=== PATIENT | female | born 1950 | race Caucasian/White ===

== ENCOUNTER → 2018-05-18 | Outpatient (CLI) | payer OTHER ==
[~2018-05-18] MED LIST: ASPIR 8181 MG PO; ASPIRIN325 PO; CALCIUM 600 +1 EAC1 PO; COLACE100 MG PO; ELIQUIS2.5 MG PO; FISH OIL 1,001000 M2 PO; LOSARTAN-HCTZ1 EAC1 PO; NORVASC10 MG PO; OXYCODONE HCL 55 MG PO; PRAVACHOL40 MG PO; PROZAC20 MG PO
== END ==
LOC: M.MRI 17:15
DX: M75.101 Unspecified rotator cuff tear or rupture of right shoulder, not specified as traumatic (principal); S43.401A Unspecified sprain of right shoulder joint, initial encounter; M19.011 Primary osteoarthritis, right shoulder; X58.XXXA Exposure to other specified factors, initial encounter; Y93.89 Activity, other specified; Y92.89 Other specified places as the place of occurrence of the external cause; Y99.8 Other external cause status

== ENCOUNTER 2018-07-27 06:10 | Inpatient (IN) | payer OTHER ==
[2018-07-16 08:15] LABS: ABSOLUTE EOSINOPHILS 0.1 thou/uL (0.0-0.7); ABSOLUTE LYMPHOCYTES 1.5 thou/uL (0.8-5.3); ABSOLUTE MONOCYTES 0.5 thou/uL (0.0-1.2); ABSOLUTE NEUTROPHILS 3.4 thou/uL (1.6-8.1); BASOPHILS 0.8 %; EOSINOPHILS 2.3 %; HEMATOCRIT 40.9 % (37.0-47.0); HEMOGLOBIN 13.5 gm/dL (12.0-15.0); LYMPHOCYTES 26.7 %; MCH 30.1 pg (26.0-34.0); MCHC 33.1 g/dL (28.0-37.0); MCV 90.8 fL (80.0-100.0); MONOCYTES 8.6 %; MPV 7.8 fl. (7.2-11.1); NUCLEATED RBCS 0 /100WBC; PLATELET COUNT* 276 thou/uL (150-400); POLYS 61.6 %; RDW-CV 13.5 % (10.5-14.5); WBC 5.5 thou/uL (4.0-11.0)
[2018-07-16 08:20] LABS: APTT 24.3 Seconds (25.0-31.3); INR 0.9; PROTIME 9.7 Seconds (9.20-11.50)
[2018-07-16 08:24] LABS: ALBUMIN 3.5 g/dL (3.4-5.0); CALCIUM 8.6 mg/dL (8.5-10.1); CREATININE 0.7 mg/dL (0.6-1.3); POTASSIUM 3.6 mmol/L (3.5-5.1); TOTAL BILIRUBIN 0.7 mg/dL (<0.1-1.0); TOTAL PROTEIN 7.3 g/dL (6.4-8.2)
[2018-07-16 09:31] LABS: ESR (SEDRATE) 8 mm/hr (0-30)
--- NOTE | 2018-07-16 16:28 | EKG ---
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1950 Requested By: Todd Chau Order Number: [id number] Reading MD: David Hamlin Measurements Intervals [place] Rate: 69 P: -9 ID: 158 QRS: -27 QRSD: 105 T: -1 QT: 434 QTc: 465 Interpretive Statements Sinus rhythm Left ventricular hypertrophy Inferior infarct, old Compared to ECG 02/12/2008 11:05:21 Left ventricular hypertrophy now present Myocardial infarct finding still present Electronically Signed On 07-16-2018 16:28:35 CDT by David Hamlin [email or web address] <ELECTRONICALLY SIGNED> By: David Hamlin MD, [facility] 07/16/18 1628 D: [id number] 6 David Hamlin MD, FACC /EPI
[2018-07-17 02:11] LABS: GLYCOHEMOGLOBIN (HGB A1C) 5.6 % (4.8-5.6)
[~2018-07-27] VITALS: Ht 170.2 cm; Wt 104.8 kg
[~2018-07-27 06:10] MED LIST changes: -ASPIRIN325 PO; -COLACE100 MG PO; -ELIQUIS2.5 MG PO; -OXYCODONE HCL 55 MG PO
[2018-07-27 10:40] VITALS: BP 140/76
[2018-07-27 15:26] VITALS: BP 133/62
[2018-07-27 16:00] VITALS: BP 116/48
[2018-07-27 20:00] VITALS: BP 106/58
[2018-07-28] VITALS (7 sets, daily range): BP systolic 121–129; BP diastolic 61–81
[2018-07-28] MEDS ORDERED: OXYCODONE HCL 55 MG PO (11:45)
[2018-07-28] MEDS ORDERED: ELIQUIS2.5 MG PO (11:47)
[2018-07-28] MEDS ORDERED: COLACE100 MG PO (12:04)
[2018-07-28] MEDS ORDERED: ASPIRIN325 PO (12:15)
--- NOTE | 2018-08-03 09:15 | OP ---
[address] [address] OPERATIVE REPORT Name: LINDSEY JAMES Room: [address] IN .R.#: [id number] Admission: 07/27/18 Attend Phys: James Curran Discharge: 07/28/18 Date of : 46 Report #: [id number] THIS REPORT FOR: //name// CC: Bella Smith DICTATED BY: Mikael Valdivia DO DATE OF SERVICE: 07/27/2018 Operative report dictated on behalf of Dr. Todd Chau. PREOPERATIVE DIAGNOSIS: Right shoulder degenerative joint disease with massive irreparable rotator cuff tear with significant atrophy. POSTOPERATIVE DIAGNOSIS: Right shoulder degenerative joint disease with massive irreparable rotator cuff tear with significant atrophy. PROCEDURE: Right reverse total shoulder arthroplasty utilizing Biomet comprehensive reverse shoulder system with the following components. 1. A 12 mm mini humeral stem. 2. A 25 mm diameter glenosphere mini baseplate. 3. A 6.5 mm x 40 mm central glenoid baseplate screw. 4. A 25 mm, 15 mm, 25 mm nonlocking 4.75 mm diameter baseplate screws. 5. A 30 mm x 4.75 mm diameter locking superior glenoid baseplate screw. 6. A 36 mm diameter standard glenosphere. 7. A 44 mm diameter standard ArCom humeral bearing. SURGEON: Todd Chau DO. LAYOUT MECHANIC: Mikael Valdivia DO. ANESTHESIA: General. ESTIMATED BLOOD LOSS: 100 mL. ANTIBIOTICS: 2 grams Ancef IV preoperatively. DRAINS: None. SPECIMENS: None. COMPLICATIONS: [place] [address] OPERATIVE REPORT Name: JACOBAILYNLINDSEYFRANCISCO BARKSDALE Room: [address] IN ..#: [id number] Admission: 07/27/18 Attend Phys: James Curran Discharge: 07/28/18 Date of : 46 Report #: [id number] DISPOSITION: Stable to PACU and will be admitted to the hospital for standard postoperative care. INDICATION FOR PROCEDURE: The patient is a pleasant 67-year-old female with complaints of chronic right shoulder pain. On exam, she had significantly decreased range of motion and strength with significant amount of pain. Radiographs displayed moderate degenerative changes of her right shoulder. MRI was obtained of her right shoulder that displayed massive rotator cuff tear with significant retraction and fatty atrophy. I had a lengthy discussion with the patient in Orthopedic Clinic discussing options and feel that her best option at this point would be a right reverse total shoulder arthroplasty. Risks, benefits, complications, indications and alternative treatments were discussed and the patient wished to proceed with surgery today. DESCRIPTION OF PROCEDURE: The patient was seen in preoperative holding area. Correct operative site, right shoulder was initialed. The patient was taken back to the operating suite, placed in supine position on standard operating room table, given benefit of general anesthetic. The head of the bed was elevated to roughly 30 degrees and the legs were placed on the standard elevated pad. All bony prominences were well padded. The right shoulder was slid over to the side of the table, therefore, to allow appropriate access throughout the surgery. Head was secured and monitored throughout the surgery and right shoulder was then prepped and draped in typical fashion. Surgery began at the time identifying correct patient, correct procedure, correct operative site, preoperative antibiotics and correct performing surgeon. Next, a standard deltopectoral approach to the right shoulder was performed. Skin was incised with #10 blade scalpel just lateral to the coracoid process extending distally along the deltopectoral interval for roughly 10-12 cm. Subcutaneous tissues were sharply incised utilizing a 10 blade scalpel also down to the level of the deltopectoral fascia. Cephalic vein was identified, was taken laterally throughout the procedure. A deltopectoral interval was bluntly dissected. Adhesions were released from the deep surface of the deltoid bluntly. A Babin-Deltoid retractor was placed deep to the deltoid. Clavipectoral fascia was incised just lateral to the conjoined tendon. Conjoined tendon was gently retracted medially throughout the case. The upper border of the pectoralis major tendon was released for roughly 1 to 1.5 cm utilizing electrocautery. There was significant evidence of a massive supraspinatus rotator cuff tear that was retracted. Biceps tendon was found within the bicipital groove and followed proximally as a capsule and subscapularis that were taken off in the PO type technique off the lesser tuberosity after releasing the biceps tendon. Capsule and subscapularis tendon again were peeled off while externally rotating the arm roughly to 1 cm distal to the anatomic neck medially along the proximal humeral shaft. A proximal humerus was able to be dislocated at this point. A canal finder was inserted in the normal fashion roughly centrally in A-P direction [place] [address] OPERATIVE REPORT Name: LINDSEY JAMES Room: [address] IN .R.#: [id number] Admission: 07/27/18 Attend Phys: James Curran Discharge: 07/28/18 Date of : 46 Report #: [id number] articular margin down the humeral canal. Sequential reamers were passed up to the appropriate size. A cutting jig was then inserted to take roughly 2-3 mm extra past the articular margin and the previous cuff insertion line for roughly 20 degrees of retroversion. Oscillating saw was utilized to perform proximal humerus cut in the normal fashion. We commenced with broaching of our humeral stem in the normal fashion up to the appropriate size, which felt to have a great fixation. Final humeral stem was then impacted in the normal fashion at this time. Then, attention was turned to her glenoid. The appropriate trackers were positioned, one posteriorly, one anteriorly and one superiorly to the glenoid. Remaining glenoid labrum and biceps tendon were debrided at this time. Capsule was released off the inferior glenoid on to the lateral scapular pillar avoiding the axillary nerve as we stayed on bone. A targeting device was then utilized to place our central guide pin with roughly 10 degrees inferior tilt and just inferior to the center point of the glenoid. One-step reamer was performed in the normal fashion also drilling for our central peg. A baseplate was then impacted into place, lining up our holes in the normal fashion. A central screw was drilled and inserted in the normal fashion and had great bite. Superior and inferior screws were drilled with superior screw being angled towards the base of the coracoid and inferior screw being angled down the lateral scapular pillar in the normal fashion. Superior screw was locking. Remainder of baseplate screws were nonlocking. The anterior and posterior screws were placed in normal fashion. A trial glenosphere with a standard offset was then placed followed by a trial of humeral tray. Once reducing this, we had a great range of motion and great stability of her shoulder in all planes. We removed the trial humeral tray and glenosphere at this point. A thorough irrigation was performed. Final glenosphere was impacted into place in the normal fashion and a final humeral tray and humeral polyethylene liner were impacted into the humeral stem in the normal fashion. Final reduction of reverse total shoulder was performed. Again, it was taken through range of motion and felt to have excellent stability and excellent range of motion, great stability with all planes of motion. Shoulder was then again thoroughly irrigated. Standard cocktail was injected. Subscapularis tendon was repaired back to the lesser tuberosity utilizing a #1 Vicryl suture being pierced through the lesser tuberosity with the cutting needle in a hahlax-mz-xgtfr fashion. The deltopectoral interval and fascia was reapproximated loosely utilizing a #1 Vicryl suture in a aowvjt-bb-kpxxk fashion. Subcutaneous tissues were closed in a simple inverted fashion with 2-0 Monocryl sutures. A running 3-0 subcuticular Stratafix was performed. Dermabond was applied to the skin. Standard dressings were applied consisting of Mepilex. The patient was placed in a slingshot shoulder immobilizer, weaned from general anesthetic, transferred in stable condition to the PACU. All sponge and needle counts were correct x 2. <ELECTRONICALLY SIGNED> By: Todd Chua DO 08/03/18 0915 1621 [id number] Chau DO /nt
== END 2018-07-28 15:02 | disposition home or self-care (01) | DRG 483 ==
LOC: M.PRE 06:10 → M.ORTHSURG 09:06 → M.TBA 09:06 → M.PRE 10:19 → M.ORTHSURG 14:48 → M.PRE 15:11 → M.ORTHSURG 07-28 15:02
PROVIDERS: Orthopaedic Surgery; ADMIT Internal Medicine
PROC: 0RRJ00Z Replacement of Right Shoulder Joint with Reverse Ball and Socket Synthetic Substitute, Open Approach (ICD-10-PCS; principal; 2018-07-27)
DX: M19.011 Primary osteoarthritis, right shoulder (principal); M75.101 Unspecified rotator cuff tear or rupture of right shoulder, not specified as traumatic; I10 Essential (primary) hypertension; E78.00 Pure hypercholesterolemia, unspecified; E78.5 Hyperlipidemia, unspecified; G89.18 Other acute postprocedural pain; R09.02 Hypoxemia; Z60.2 Problems related to living alone; Z88.8 Allergy status to other drugs, medicaments and biological substances; I25.2 Old myocardial infarction; Z95.5 Presence of coronary angioplasty implant and graft; Z90.710 Acquired absence of both cervix and uterus; Z90.49 Acquired absence of other specified parts of digestive tract; Z79.899 Other long term (current) drug therapy

== ENCOUNTER → 2020-01-27 | Outpatient (CLI) | payer MEDICARE ==
[~2020-01-27] VITALS: Ht 170.2 cm; Wt 104.3 kg
[~2020-01-27] MED LIST changes: +ASPIRIN325 PO; +COLACE100 MG PO; +ELIQUIS2.5 MG PO; +EVISTA PO; +OLMESARTAN-HCT1 EAC2 PO; +OXYCODONE HCL 55 MG PO; +VITAMIN B12 PO; +VITAMIN D3125 MC1 PO; +ZETIA10 MG PO
[2020-01-27 09:08] LABS: ABSOLUTE BASOPHILS 0.1 thou/uL (0.0-0.2); ABSOLUTE EOSINOPHILS 0.1 thou/uL (0.0-0.7); ABSOLUTE LYMPHOCYTES 1.8 thou/uL (0.8-5.3); ABSOLUTE MONOCYTES 0.5 thou/uL (0.0-1.2); ABSOLUTE NEUTROPHILS 3.4 thou/uL (1.6-8.1); BASOPHILS 1.1 %; EOSINOPHILS 1.8 %; HEMOGLOBIN 14.1 gm/dL (12.0-15.0); LYMPHOCYTES 30.5 %; MCH 30.5 pg (26.0-34.0); MCHC 33.6 g/dL (28.0-37.0); MCV 90.7 fL (80.0-100.0); MONOCYTES 8.3 %; MPV 7.7 fl. (7.2-11.1); NUCLEATED RBCS 0 /100WBC; PLATELET COUNT* 274 thou/uL (150-400); POLYS 58.3 %; RBC 4.63 mil/uL (4.20-5.00); RDW-CV 13.3 % (10.5-14.5); WBC 5.9 thou/uL (4.0-11.0)
[2020-01-27 09:15] LABS: PROTIME 10.1 Seconds (9.20-11.50)
[2020-01-27 09:19] LABS: ALBUMIN 3.8 g/dL (3.4-5.0); CALCIUM 9.2 mg/dL (8.5-10.1); CREATININE 0.8 mg/dL (0.6-1.3); POTASSIUM 3.8 mmol/L (3.5-5.1); TOTAL BILIRUBIN 0.6 mg/dL (<0.1-1.0); TOTAL PROTEIN 7.7 g/dL (6.4-8.2)
[2020-01-27 10:21] LABS: ESR (SEDRATE) 3 mm/hr (0-30)
--- NOTE | 2020-01-27 14:14 | EKG ---
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1950 Requested By: Todd Chau Order Number: [id number] Ana Cristina MD: Jose Gatica Measurements Intervals [place] Rate: 70 P: 9 VT: 161 QRS: -19 QRSD: 95 T: 4 QT: 413 QTc: 446 Interpretive Statements Sinus rhythm Inferior infarct, old Compared to ECG 07/16/2018 08:27:47 Left ventricular hypertrophy no longer present Myocardial infarct finding still present Electronically Signed On 01-27-2020 14:13:37 CDT by Jose Gatica [email or web address] <ELECTRONICALLY SIGNED> By: Jose Gatica MD, [facility] 01/27/20 1413 6 Jose Gatica MD, FAC /EPI
[2020-01-27 21:06] LABS: GLYCOHEMOGLOBIN (HGB A1C) 5.8 % (4.8-5.6)
== END ==
LOC: M.CRD 08:00 → M.LAB 08:00 → M.PRE 02-07 06:52 → EDSTATUS 02-07 15:05
PROVIDERS: Orthopaedic Surgery
DX: Z01.818 Encounter for other preprocedural examination (principal); M17.12 Unilateral primary osteoarthritis, left knee; I25.2 Old myocardial infarction; Z96.652 Presence of left artificial knee joint

== ENCOUNTER 2020-03-20 06:15 | Inpatient (IN) | payer MEDICARE ==
[2020-03-15 09:04] LABS: ABSOLUTE EOSINOPHILS 0.1 thou/uL (0.0-0.7); ABSOLUTE LYMPHOCYTES 1.9 thou/uL (0.8-5.3); ABSOLUTE MONOCYTES 0.5 thou/uL (0.0-1.2); ABSOLUTE NEUTROPHILS 3.4 thou/uL (1.6-8.1); BASOPHILS 0.7 %; EOSINOPHILS 1.3 %; HEMATOCRIT 40.8 % (37.0-47.0); HEMOGLOBIN 13.9 gm/dL (12.0-15.0); LYMPHOCYTES 32.3 %; MCH 30.5 pg (26.0-34.0); MCHC 34.1 g/dL (28.0-37.0); MCV 89.4 fL (80.0-100.0); MONOCYTES 8.3 %; MPV 7.4 fl. (7.2-11.1); NUCLEATED RBCS 0 /100WBC; PLATELET COUNT* 266 thou/uL (150-400); POLYS 57.4 %; RBC 4.57 mil/uL (4.20-5.00); RDW-CV 13.6 % (10.5-14.5); WBC 5.9 thou/uL (4.0-11.0)
[2020-03-15 09:10] LABS: APTT 23.6 Seconds (25.0-31.3)
[2020-03-15 09:29] LABS: ALBUMIN 3.6 g/dL (3.4-5.0); CALCIUM 8.9 mg/dL (8.5-10.1); CREATININE 0.9 mg/dL (0.6-1.3); TOTAL BILIRUBIN 0.6 mg/dL (<0.1-1.0); TOTAL PROTEIN 7.2 g/dL (6.4-8.2)
[2020-03-15 10:14] LABS: ESR (SEDRATE) 6 mm/hr (0-30)
[~2020-03-20] VITALS: Ht 170.2 cm; Wt 104.3 kg
--- NOTE | ~2020-03-20 | OP ---
[place] [id number] OPERATIVE REPORT Name: LINDSEY JAMES Room: [address] IN M.R.#: [id number] Admission: 03/20/20 Attend Phys: James Curran Discharge: Date of : 46 Report #: [id number] THIS REPORT FOR: //name// cc: Bella Camacho Anna S. DO ~ THIS REPORT FOR: //name// CC: Bella Smith DICTATED BY: Bandar Cantrell DO DATE OF SERVICE: 03/20/2020 PREOPERATIVE DIAGNOSIS: Left knee degenerative joint disease. POSTOPERATIVE DIAGNOSIS: Left knee degenerative joint disease. OPERATION: Left total knee arthroplasty. SURGEON: Todd Chau DO DIRECTOR HOUSEKEEPING: Bandar Cantrell DO and Jazz Waldron PA-C. ESTIMATED BLOOD LOSS: 100 mL. ANTIBIOTICS: 2 g IV Ancef given within 1 hour of skin incision. ANESTHESIA: General plus preoperative adductor canal block with indwelling OnQ catheter TXA given IV preoperatively 1 gram. DRAINS: None. SPECIMENS: None. COMPLICATIONS: None. CONDITION: Stable. DISPOSITION: To PACU to ortho floor. OPERATIVE IMPLANTS: Include the [employer] Journey II System with following size components: 1. Size 5 Oxinium femoral component. 2. Size 5 tibial baseplate 10 mm thickness polyethylene insert. [address] [place] [address] OPERATIVE REPORT Name: LINDSEY JAMES ANN Room: [address] IN [facility].#: [id number] Admission: 03/20/20 Attend Phys: James Curran Discharge: Date of : 46 Report #: [id number] 3. A 32-mm patellar components and also 2 bags of Biomet bone cement were used for implantation. OPERATIVE INDICATIONS: The patient is a pleasant 69-year-old female who has been followed in orthopedic clinic regarding her longstanding left knee pain. Radiographs are consistent with severe degenerative changes with loss of joint space, subchondral sclerosis, osteophytic changes as well as a varus abnormality. She had failed conservative treatment over the last several years, including activity modifications, anti-inflammatories and intraarticular injections. Despite trying these things, she has continued pain and decrease in her overall quality of life; therefore, we did recommend left total knee arthroplasty. Risks, indications, and treatment alternatives were discussed with the patient and informed consent was signed and attached to chart. DESCRIPTION OF PROCEDURE: The patient was taken to the operating suite and placed on operative table in supine position where general anesthesia was induced. A well-padded tourniquet was then placed on the left proximal thigh. Of note, this was inflated for a total of 60 minutes throughout the procedure at 295 mmHg. The left lower extremity was then sterilely prepped and draped free in the usual fashion. A time-out was then performed to confirm the safety checklist has been completed and all the present OR personnel were in agreement. The extremity was gravity exsanguinated. A midline incision was then marked out and utilized. Sharp dissection was carried down through skin and subcutaneous tissue down to the level of the extensor mechanism. A standard medial parapatellar arthrotomy was then made utilizing the new blade. The fat pad was debrided and the patella was everted and the knee was hyperflexed. Retractors were then placed. Osteophytes were then removed with rongeur and gained access to the intramedullary canal with the large reamer. The intramedullary femoral cutting block was then pinned into position at 5 degrees of valgus and a 10 mm resection from the distal femur. Cutting block was then pinned into position, cut was confirmed with an otis wing and then made with a reciprocating saw. Bony cut surfaces were then removed. Attention was then taken to the proximal tibia. The extramedullary tibial guide was set to resect 10 mm from the highest point. Appropriate rotation and slope were established and the cutting block was pinned into position. Retractors were placed to protect the collateral ligament as well as popliteal structure. subcutaneous saw was then used to make the bony cut. The bony cut surfaces were then removed. The extension block was checked in full extension and found to be appropriate. Therefore, the pins were removed. The knee was once again hyperflexed. Attention was taken back to the distal femur where the femur was measured from anterior to posterior, the appropriate 5-in-1 cutting block was pinned into position and 3 degrees of external rotation in reference to the posterior condylar axis. The cutting block was pinned into position and the cuts were then made through the capture block. Bony wafers were then removed. At this time, the meniscal remnants as well as the remaining posterior osteophytes were removed and the remnant cruciate ligaments. The proximal tibia [address] [address] OPERATIVE REPORT Name: LINDSEY JAMES Room: [address] IN M.R.#: [id number] Admission: 03/20/20 Attend Phys: James Curran Discharge: Date of : 46 Report #: [id number] was then measured appropriately and the trial baseplate was pinned into position using a drop leyla to confirm the appropriate rotation. The trial femoral component was then impacted on to the distal femur. Multiple sized tibial bearings were then trialled. A 10 mm spacer gave excellent range of motion and stability throughout. Attention was then taken to patella where there were significant degenerative changes. Therefore, we did proceed with resurfacing this with the Biomet reamers to a 14 mm thickness, which did leave us with a nice flush cut surface. The patella was then measured and the peg holes were drilled and the patellar button was placed and taken through full range of motion and found to be tracking appropriately. The trial patella and femoral components were then removed. The tibia was prepared for final implantation with the drill and punch. Small drill holes were made on the medial surface of the tibial plateau where there was sclerotic bone to improve cement interdigitation. The knee was then copiously irrigated. The anesthetic cocktail was injected into the posterior capsule as well as the surrounding soft tissue. The bone cement was mixed on the back table and applied to the undersurface of the final components. The bony surfaces were dried and then the cement was pressurized by hand into the bony interstitches. The final components were then impacted into position beginning with the tibia, followed by the femur and finally the patellar component, which was clamped into position. Once again, a trial was performed with a 10 mm articular spacer and this did provide full range of motion and excellent stability throughout. Therefore, we did exchange this for a final 10 mm component. All the excess bone cement was sharply removed. The knee was once again copiously irrigated and vancomycin powder was sprinkled throughout. Tourniquet was released. There was no significant bleeding noted. The knee was taken in 90 degrees of flexion while the cement was allowed to completely harden. A layered closure was then begun beginning with #1 Vicryl suture in [id number] fashion throughout the extensor mechanism and this was oversewn with the Stratafix with a running Stratafix suture. Subcutaneous tissue was reapproximated with 2-0 Monocryl suture in a buried fashion followed by running subcuticular 3-0 Stratafix suture. Skin glue was applied to the incision and allowed to dry, followed by application of a Mepilex dressing and thigh-high MARCUS hose. The patient was found to have tolerated the procedure well and was transferred to PACU in stable condition with no apparent complications. Sponge, needle counts reported correct x 2 per the OR personnel. ATTESTATION: Dr. Todd Chau was present for all critical aspects of surgery. By: [id number] Chau DO /nt
[2020-03-20 07:45] VITALS: BP 149/79
[2020-03-20 13:23] VITALS: BP 101/55
[2020-03-20 16:35] VITALS: BP 127/67
--- NOTE | 2020-03-20 17:23 | NUR ---
PT A&Ox4. VITALS STABLE. IV PATENT. DRESSING C/D/I. ICE PACK, TEDs, SCDs IN PLACE. ZOFRAN GIVEN FOR NAUSE. ON Q PUMP FOR PAIN, DENIED PAIN MEDS. HAS NOT GOT UP. FALL PRECAUTIONS IN PLACE. CALL LIGHT WITHIN REACH. WILL CONTINUE TO MONTIOR.
[2020-03-20 19:30] VITALS: BP 119/57
[2020-03-21 00:02] VITALS: BP 93/58
[2020-03-21 06:03] LABS: HEMATOCRIT 32.7 % (37.0-47.0)
[2020-03-21 06:10] VITALS: BP 92/42
--- NOTE | 2020-03-21 07:50 | NUR ---
PATIENT HAS RESTED WELL THROUGHOUT THE NIGHT. VSS ON 3L 02 VIA NASAL CANNULA. PAIN WELL CONTROLLED. MEDICATIONS GIVEN ORDERED AND CHARTED. DRESSING TO LEFT KNEE IS C/D/I, MARCUS HOSE AND SCD'S IN PLACE. ON Q PUMP IN PLACE. PATIENT URINATING ADEQUATELY SINCE SURGERY. PATIENT IS UP WITH ASSIST X 1 TO BSC. PATIENT INSTRUCTED TO USE CALL LIGHT WHEN NEEDING ASSISTANCE. HOURLY ROUNDS MADE. WILL CONTINUE WITH PLAN OF CARE AND NURSING TO MONITOR.
[2020-03-21 08:02] VITALS: BP 103/53
[2020-03-21 12:04] VITALS: BP 88/44
--- NOTE | 2020-03-21 15:35 | NUR ---
SW called pt to complete initial assessment, introduce self, and SW role. Pt alert, oriented. Pt lives at home alone and has 2 dtrs who are supportive and can assist if needed. Pt has hx with OP services at [facility] in [place] but says that she is open to other OP or HH if needed; pt says that her copays for OP were $40 per visit so she has some reservations about the cost. She was told by doctor about [facility]. Pt has RW. Pt has hx of blood thinner, Eliquis. SW to continue to follow to assist with safe dc planning.
--- NOTE | 2020-03-21 16:28 | NUR ---
PT A&Ox4. UP WITH 1 USING GAIT BELT AND WALKER. SOA WITH ABULATION, O2 STAT OF 80% ON RA. PT PUT ON 3LO2 PER NC, O2 STAT OF 95% ON 3L, RESPIRATORY AWEAR. PAIN PARTIALLY CONTROLLED WITH OXY IR AND TYLENOL. DENIED NAUSEA. TOLERATING DIET. DRESSING C/D/I. ICE, TEDs AND SCDs IN PLACE. FALL PRECAUTIONS IN PLACE. CALL LIGHT WITHIN REACH. WILL CONTINUE TO MONITOR.
[2020-03-21 17:06] VITALS: BP 100/44
--- NOTE | 2020-03-21 17:28 | NUR ---
RECIEVED O.T. EVAL AND TX ORDERS. WILL DEFER TO P.T. AT THIS TIME. PLEASE ORDER FURTHER O.T. SERVICES IF NEEDED.
[2020-03-21 20:00] VITALS: BP 102/46
--- NOTE | 2020-03-22 05:28 | NUR ---
PATIENT SLEPT WELL DURING THIS SHIFT. PT WITH FLUIDS INFUSING PER DR ORDER. PT WITH MEPELIX OVER INCISION. PT WEARING MARCUS HOSE AND SCD'S. ICE PACK OFFERED. PT ON O2 @ 3 LITERS PER NASAL CANNULA. PT HAS ON Q PUMP SET AT 6ML/HR. PT GIVEN PAIN MEDICATION X1 ON THIS SHIFT AND RECEIVED TYLENOL 650MG AND OXY IR 5MG. PT DENIES N/V. PT IS UP WITH G.BELT AND WALKER. FREQUENTLY USED ITEMS AND CALL LIGHT WITHIN REACH. SIDERAILS UPX3 AND BED ALARM ON. WILL CONTINUE TO MONITOR.
[2020-03-22 06:10] LABS: HEMATOCRIT 29.9 % (37.0-47.0); HEMOGLOBIN 10.2 gm/dL (12.0-15.0)
[2020-03-22 07:50] VITALS: BP 109/62
[2020-03-22] MEDS ORDERED: ELIQUIS5 MG PO (09:26)
[2020-03-22] MEDS ORDERED: COLACE 100 MG100 MG PO (09:26)
[2020-03-22] MEDS ORDERED: OXYCODONE HCL 55 MG PO (09:26)
[2020-03-22] MEDS ORDERED: TRAMADOL 50 MG50 MG PO (11:36)
[2020-03-22 12:50] VITALS: BP 88/49
[2020-03-22 14:14] VITALS: BP 109/62
[2020-03-22 16:04] VITALS: BP 109/62
--- NOTE | 2020-03-22 16:05 | NUR ---
ANA spoke with pt about dc planning for today. Pt chose to accept HH services initially and then transition to OP if needed due to possibility that HH will not have a copay vs OP having copays. ANA arranged with pt choice of in network provider [facility] services; faxed referral and orders/dc summary. Pt already has neede rolling walker at home. Pt has family to provide ride home. No other dc needs expressed.
--- NOTE | 2020-03-22 17:20 | NUR ---
PATIENT DISCHARGED TO HOME WITH HOME HEALTH. DISCHARGE PAPERS REVIEWED AND SIGNED. PRESCRIPTIONS AND INFORMATION SHEETS GIVEN. IV REMOVED. DRESSING TO KNEE IN PLACE. PAIN PUMP IN PLACE AND DRESSING REINFORCED. PATIENT DENIES ANY FURTHER NEEDS. PATIENT TAKEN BY WHEELCHAIR TO EXIT. LEFT WITH DAUGHTER.
== END 2020-03-22 17:20 | disposition home health service (06) | DRG 469 ==
LOC: M.TBA 06:15 → M.3W 10:28 → M.PRE 13:13 → M.3W 03-22 17:20
PROVIDERS: Orthopaedic Surgery; ADMIT Internal Medicine
PROC: 0SRD069 Replacement of Left Knee Joint with Oxidized Zirconium on Polyethylene Synthetic Substitute, Cemented, Open Approach (ICD-10-PCS; principal; 2020-03-20)
PROC: 3E0T3BZ Introduction of Anesthetic Agent into Peripheral Nerves and Plexi, Percutaneous Approach (ICD-10-PCS; 2020-03-20)
DX: M17.12 Unilateral primary osteoarthritis, left knee (principal); J96.01 Acute respiratory failure with hypoxia; I95.9 Hypotension, unspecified; I10 Essential (primary) hypertension; E78.00 Pure hypercholesterolemia, unspecified; I25.10 Atherosclerotic heart disease of native coronary artery without angina pectoris; F32.9 Major depressive disorder, single episode, unspecified; E78.5 Hyperlipidemia, unspecified; E66.9 Obesity, unspecified; F41.9 Anxiety disorder, unspecified; E03.9 Hypothyroidism, unspecified; G89.29 Other chronic pain; M19.011 Primary osteoarthritis, right shoulder; Z96.1 Presence of intraocular lens; Z96.611 Presence of right artificial shoulder joint; Z20.828 Contact with and (suspected) exposure to other viral communicable diseases; Z79.82 Long term (current) use of aspirin; Z79.899 Other long term (current) drug therapy; Z95.5 Presence of coronary angioplasty implant and graft; Z90.710 Acquired absence of both cervix and uterus; I25.2 Old myocardial infarction; Z90.49 Acquired absence of other specified parts of digestive tract; Z98.42 Cataract extraction status, left eye; Z98.41 Cataract extraction status, right eye; Z68.36 Body mass index [BMI] 36.0-36.9, adult; Z72.89 Other problems related to lifestyle